=== PATIENT | female | born 1965 | race Caucasian/White ===

== ENCOUNTER → 2018-06-02 | Outpatient (CLI) | payer BC, OTHER ==
--- NOTE | 2018-06-03 08:54 | MAM ---
EXAM DESCRIPTION: 3D Screening BILATERAL : Digital Mammography. CLINICAL HISTORY: 52 years Female SCREENING . No complaints. No personal history or family history of breast cancer. Childbirth. Postmenopausal 5 years. Currently on HRT. Lifetime risk of developing breast cancer (Tyrer-Cuzick model)(%): 8.5. COMPARISON: 2-D digital screening bilateral study 11/06/2015.. No prior reports available. TECHNIQUE: Bilateral CC and MLO projection full-field images, with [employer] Displacement Digital tomosynthesis mammographic technique. Bilateral digital 2-D full-field MLO images. CAD not utilized. Bilateral 2-D digital full-field images, MLO and CC projections, non-displaced, with CAD. FINDINGS: The breast parenchymal density pattern is: Extremely dense breast tissue, which lowers the sensitivity of mammography. No skin thickening or nipple retraction. Solitary microcalcifications in the dense breast tissue bilaterally. Focal asymmetry in the upper lateral quadrant of the right breast is stable since the prior study. No new focal, stellate mass or density, focal asymmetry , and no suspicious microcalcifications bilaterally. Stable mammograms compared to prior study. Taking into account, differences in mammographic technique. IMPRESSION: Benign exam. BIRAD CATEGORY: 2 BENIGN FINDINGS. RECOMMENDATIONS: FOLLOW UP: Routine digital bilateral screening, one year interval from date Written communication explaining the IMPRESSION and follow-up, will be mailed to the patient and referring health care provider. According to the [employer], yearly mammograms are recommended starting at age 40 and continuing as long as a woman is in good health. Any breast change noted on a breast self-exam should be reported promptly to the patient's healthcare provider. Breast MRI is recommended for women with an approximately 20-25% or greater lifetime risk of breast cancer, including women with a strong family history of breast or ovarian cancer and women who have been treated for Hodgkin's disease. A negative mammographic report should not delay tissue diagnosis in patients with significant clinical history or physical findings. Extremely dense breast tissue limits the sensitivity of digital mammography. Electronically signed by: Eriberto Pearce MD 06/03/2018 8:53 AM CDT
== END ==
LOC: MAMMO 14:31
PROVIDERS: ATTEND Obstetrics & Gynecology
DX: Z12.31 Encounter for screening mammogram for malignant neoplasm of breast (principal)

== ENCOUNTER → 2019-02-02 | Outpatient (CLI) | payer OTHER ==
--- NOTE | 2019-02-02 20:55 | MRI ---
EXAM DESCRIPTION: Brain w/wo Contrast: Magnetic Resonance Imaging. CLINICAL HISTORY: 53 years Female MS COMPARISON: MRI scan of the cervical spine and lumbar spine on the same visit. TECHNIQUE: Multiplanar, high-field MRI, multiple conventional sequences, without and with gadolinium IV contrast. No adverse reactions. Multiple axial diffusion sequences. FINDINGS: Hyperintense FLAIR and T2-weighted signal in the head genu and rostrum of the corpus callosum more than the body. These lesions are not enhancing.. Also hyperintense FLAIR signal in the periventricular white matter and cole radiata more left than right. More in the left frontal lobe Also hyperintense FLAIR signal in the centrum semiovale, more in the left frontal lobe. No abnormal contrast enhancement. Hyperintense FLAIR signal in the lateral left basal ganglia, without contrast enhancement. No hemorrhage, no cerebral edema, no mass-effect. Normal contrast enhancement. Normal signal in the brainstem and cerebellar hemispheres. No hemorrhage, no cerebral edema, no mass-effect. Normal contrast enhancement. Concordance of the diffusion and non-diffusion sequences with no evidence of acute or subacute infarction. Cortical sulci, ventricles, and other CSF spaces, and the subdural spaces are normally configured.. No effacement or displacement. No midline shift. No extra-axial hemorrhage. Normal contrast enhancement. Normal flow signal void in the major vessels of the king [place], and the venous sinuses. IACs are symmetric bilaterally. Normal signal in the bilateral mastoid air cells. No mass effect in the bilateral Cerebellopontine angles. Normal contrast enhancement. Pituitary gland occupies most of the sella. Normal contrast enhancement. Base of the cerebellar tonsils is above the level of the foramen magnum. Mucoperiosteal thickening in the paranasal sinuses, especially left maxillary antrum without air-fluid level.. The bony calvarium is intact. IMPRESSION: 1. Abnormal FLAIR and T2 signal as described involving the corpus callosum periventricular white matter and cole radiata, and the centrum semiovale, with more prominent lesions in the left frontal lobe. No abnormal contrast enhancement in the lesions suggests chronic focal sclerosis and/or remission of the process. No hemorrhage, mass effect, or diffusion restriction. 2. Chronic sinusitis. Electronically signed by: Eriberto Pearce MD 02/02/2019 8:53 PM CDT
--- NOTE | 2019-02-03 11:21 | MRI ---
EXAM DESCRIPTION: Lumbar Spine w/o Contrast : Magnetic Resonance Imaging. CLINICAL HISTORY: RADICULOPATHY COMPARISON: MRI scan of the brain without and with gadolinium IV contrast and MRI scan of the cervical spine on this visit. MRI scan of the pelvis 01/17/2014. TECHNIQUE: Multiplanar, multiple standard sequences, non-contrast MRI, lumbar spine. FINDINGS: L5-S1: Disc space preserved with normal signal in the disc. No posterior bulging. Posterior elements are unremarkable. Mild left foraminal narrowing. L4-L5: Normal signal in the disc and disc space preserved. No significant posterior bulging. Bilateral posterior flavum ligament thickening. Mild canal narrowing and minimal bilateral foraminal narrowing more on the right. L3-L4: Minimal disc space loss and disc desiccation. No significant bulging. Posterior ligaments are thickened with minimal facet arthrosis. Canal and foramina are patent. L2-L3: Normal signal in the disc with disc space preserved. Posterior elements are unremarkable. Canal and foramina are patent. L1-L2: Disc desiccation with anterior disc space loss and bulging. No significant posterior bulging. Posterior elements unremarkable. Canal and foramina are patent. Conus terminates at this level. T12-L1: Minimal disc desiccation with narrowing of the anterior disc space. No posterior bulging. Posterior elements unremarkable. Canal and foramina are patent. Normal signal in the cord. No abnormal curvature Paravertebral soft tissues negative.. Variable heterogeneous marrow signal in the remaining vertebral bodies and the posterior elements. Probably marrow reconversion. This is better visualized in the posterior elements. Vertebral bodies are not compressed at any level. IMPRESSION: 1. No significant disc desiccation, spondylosis, disc bulge. No clinically relevant hypertrophic changes in the posterior elements. No canal or foraminal stenosis. 2. Minimal canal and foraminal narrowing at L4-5 with hypertrophic changes in the posterior elements. No disc bulging. 2. Minimal disc space loss with anterior disc bulging and desiccation at L3-4 and anterior bulging and desiccation and disc space loss at L1-L2. Electronically signed by: Eriberto Pearce MD 02/03/2019 11:19 AM CDT
--- NOTE | 2019-02-03 11:47 | MRI ---
EXAM DESCRIPTION: Cervical Spine w/wo Contrast: MRI. CLINICAL HISTORY: 53 years Female MS. Right leg radiculopathy. COMPARISON: MRI scan of the brain without and with gadolinium IV contrast and MRI scan of the lumbar spine without gadolinium contrast on this visit TECHNIQUE: Multiplanar, high-field MRI, multiple sequences, before and after IV infusion of gadolinium contrast Cervical spine. FINDINGS: C3-C4: Disc desiccation and disc space preserved. Posterior 2 mm disc bulge to the left of midline. Posterior elements unremarkable. Moderate canal narrowing with neural foramina patent. Normal contrast enhancement. C4-C5: Disc desiccation with disc space preserved. Minimal posterior midline disc bulge. Mild canal narrowing. Bilateral neural foramina are patent. Minimal thickening of posterior ligaments. Normal enhancement at this level. C5-C6: Disc space loss and disc desiccation. Anterior Modic type II endplate reactive changes. Posterior Schmorl's node and some endplate cyst inferior C5 to the left of midline. Disc desiccation posterior broad-based 3 mm bulge. Uncinate spur and mild neural foraminal narrowing on the right. Moderate to severe neural foraminal narrowing on the left with facet arthrosis. No abnormal contrast enhancement. C6-C7: Disc space preserved with minimal disc desiccation. Minimal posterior midline bulge. Small uncinate spur and narrowing of the left neural foramen. Bilateral facets are negative. No abnormal contrast enhancement. Normal signal in the remaining discs with no bulging. Disc spaces preserved. Canal and neural foramina are patent. Facet joints are unremarkable. Normal contrast enhancement in the disc spaces. Spinal alignment anatomic. No cord compression or cord edema. No abnormal cord enhancement. Atlantoaxial joint unremarkable. Base of the cerebellar tonsils is above the foramen magnum. Paravertebral soft tissues are negative. Vertebral bodies are not compressed at any level. Normal marrow signal in the remaining vertebral bodies and the posterior elements. IMPRESSION: 1. No cord compression or cord edema or abnormal cord enhancement at any level. No abnormal enhancement in the neural foramina or disc spaces. No paravertebral soft tissue mass or abnormal enhancement. 2. Moderate spondylosis anteriorly C5-C6. Schmorl's nodes/cyst inferior C5 endplate. Moderate to severe left neural foraminal narrowing. No abnormal contrast enhancement. 3. Minimal disc bulge C3-4 and C4-5 with normal enhancement. No canal or neural foraminal stenosis. Electronically signed by: Eriberto Pearce MD 02/03/2019 11:45 AM CDT
== END ==
LOC: MRI 13:10
PROVIDERS: ATTEND Psychiatry & Neurology Neurology
DX: Z01.812 Encounter for preprocedural laboratory examination (principal); G35 Multiple sclerosis; M51.16 Intervertebral disc disorders with radiculopathy, lumbar region; M47.22 Other spondylosis with radiculopathy, cervical region; J32.9 Chronic sinusitis, unspecified

== ENCOUNTER → 2020-01-04 | Outpatient (CLI) | payer OTHER | LOC: GMAJ 15:14 | PROVIDERS: ATTEND Family Medicine | DX: E61.1 Iron deficiency (principal) ==